=== PATIENT | male | born 1970 | race Caucasian/White ===

== ENCOUNTER 2017-02-25 20:55 | Emergency (ER) | payer MEDICAID, OTHER ==
[~2017-02-25] VITALS: Ht 193 cm; Wt 110.5 kg
[~2017-02-25 20:55] MED LIST: CYCL-36 PO; GLIP5 PO; LISI5 PO; LORTA5 PO; METF-324 PO; TRAD5TAB PO
[2017-02-25 21:06] VITALS: BP 128/87; PULSE 119; RESP 16; TEMP 98.4; O2SAT 95
[2017-02-25] MEDS ORDERED: METF1000 PO ×2 (21:19→22:15)
[2017-02-25] MEDS ORDERED: GLIP10TA6 PO ×2 (21:19→22:15)
[2017-02-25] MEDS ORDERED: SODIUM CHLOR 0.9% 1000 ML INJ 1,000 ML IV ONE ×2 (21:32→22:02)
--- NOTE | 2017-02-25 21:39 | PD ---
HPI Chief Complaint: Abnormal Results Time Seen by Provider: 21:32 Travel History International Travel<30 days: No Contact w/Intl Traveler<30days: No Traveled to known affect area: No History of Present Illness HPI Patient 46-year-old male presents emergency department for a chief complaint medication refill. Patient states that his primary care physician about a year ago when he's been without his medicines for approximately 3-4 months. 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 Patient has no complaints: Denies any chest pain shortness of breath abdominal pain nausea vomiting diarrhea dysuria polyuria palpitations headaches. Patient states that he was formerly on glipizide as well as metformin. PFSH Past Medical History Asthma: No Blood Disorders: No Cancer: No COPD: No Diabetes: Yes Patient Takes Glucophage: Yes (our of for three weeks) Diminished Hearing: No Genitourinary: No Hypertension: Yes Immune Disorder: No Musculoskeletal: No Neurologic: No Psychiatric: No Reproductive: No Respiratory: No Immunizations Current: Yes Sleep Apnea: No Thyroid Disease: No Tetanus Vaccination: < 5 Years Influenza Vaccination: No Past Surgical History Surgical History: No Previous Surgery Social History Alcohol Use: No Tobacco Use: Yes (1 PPD) Substance Use: No Allergies-Medications (Allergen,Severity, Reaction): Coded Allergies: No Known Allergies (Verified , 07/04/14) Reported Meds & Prescriptions Reported Meds & Active Scripts Active Metformin (Metformin HCl) 1,000 Mg Tab 1,000 Mg PO BIDPC With meals Glipizide 10 Mg Tab 10 Mg PO BIDAC Take 30 minutes before a meal Review of Systems Except as stated in HPI: all other systems reviewed are Neg Physical Exam Narrative GENERAL: [Well-developed well-nourished no apparent distress. Smells of cigarette smoke. SKIN: Focused skin assessment warm/dry. HEAD: Atraumatic. Normocephalic. EYES: Pupils equal and round. No scleral icterus. No injection or drainage. ENT: No nasal bleeding or discharge. Mucous membranes pink and moist. NECK: Trachea midline. No JVD. CARDIOVASCULAR: Regular rhythm with mild tachycardia. No murmur appreciated. RESPIRATORY: No accessory muscle use. Clear to auscultation. Breath sounds equal bilaterally. GASTROINTESTINAL: Abdomen soft, non-tender, nondistended. Hepatic and splenic margins not palpable. MUSCULOSKELETAL: No obvious deformities. No clubbing. No cyanosis. No edema. NEUROLOGICAL: Awake and alert. No obvious cranial nerve deficits. Motor grossly within normal limits. Normal speech. PSYCHIATRIC: Appropriate mood and affect; insight and judgment normal. Data Data Last Documented VS Vital Signs Date Time Temp Pulse Resp B/P Pulse Ox O2 Delivery O2 Flow Rate FiO2 02/25/17 22:49 95 18 117/70 98 Room Air 02/25/17 21:06 98.4 Orders Electrocardiogram (02/25/17 21:32) Complete Blood Count With Diff (02/25/17 21:32) Comprehensive Metabolic Panel (02/25/17 21:32) Ecg Monitoring (02/25/17 21:32) Iv Access Insert/Monitor (02/25/17 21:32) Oximetry (02/25/17 21:32) Sodium Chlor 0.9% 1000 Ml Inj (Ns 1000 M (02/25/17 21:32) Sodium Chlor 0.9% 1000 Ml Inj (Ns 1000 M (02/25/17 22:02) Sodium Chloride 0.9% Flush (Ns Flush) (02/25/17 21:45) Labs Laboratory Tests Test 02/25/17 21:38 White Blood Count 10.8 TH/MM3 Red Blood Count 5.24 MIL/MM3 Hemoglobin 16.4 GM/DL Hematocrit 46.5 % Mean Corpuscular Volume 88.7 FL Mean Corpuscular Hemoglobin 31.2 PG Mean Corpuscular Hemoglobin 35.2 % Concent Red Cell Distribution Width 11.3 % Platelet Count 268 TH/MM3 Mean Platelet Volume 8.6 FL Neutrophils (%) (Auto) 67.8 % Lymphocytes (%) (Auto) 24.0 % Monocytes (%) (Auto) 5.9 % Eosinophils (%) (Auto) 0.1 % Basophils (%) (Auto) 2.2 % Neutrophils # (Auto) 7.4 TH/MM3 Lymphocytes # (Auto) 2.6 TH/MM3 Monocytes # (Auto) 0.6 TH/MM3 Eosinophils # (Auto) 0.0 TH/MM3 Basophils # (Auto) 0.2 TH/MM3 CBC Comment DIFF FINAL Differential Comment Sodium Level 135 MEQ/L Potassium Level 3.8 MEQ/L Chloride Level 98 MEQ/L Carbon Dioxide Level 28.4 MEQ/L Anion Gap 9 MEQ/L Blood Urea Nitrogen 12 MG/DL Creatinine 1.00 MG/DL Estimat Glomerular Filtration 80 ML/MIN Rate Random Glucose 279 MG/DL Calcium Level 9.3 MG/DL Total Bilirubin 0.4 MG/DL Aspartate Amino Transf 15 U/L (AST/SGOT) Alanine Aminotransferase 26 U/L (ALT/SGPT) Alkaline Phosphatase 104 U/L Total Protein 7.5 GM/DL Albumin 3.5 GM/DL MDM Medical Decision Making Medical Screen Exam Complete: Yes Emergency Medical Condition: Yes Interpretation(s) EKG shows sinus tachycardia at a rate of 109, normal axis normal R-wave progression. No concerning ST T changes. Intervals other than return to normal limits. This normal EKG except for rate. Differential Diagnosis DKA unlikely, hyperglycemia, acute kidney injury, dehydration. Narrative Course Patient was roomed in emergency department, he was given 2 L of normal saline, his heart rate has normalized. He has no physical complaints or warrants additional workup in the emergency department. His liver enzymes and kidney function are within normal limits. After confirming the doses of the medication refills with him he was prescribed a month of each. He is stable for discharge at this time. Reiterated smoking cessation need for follow-up with a primary care physician and return to ED criteria. He is stable for discharge at this time. Diagnosis Primary Impression: Hyperglycemia due to type 2 diabetes mellitus Qualified Code: E11.65 - Type 2 diabetes mellitus with hyperglycemia, without long-term current use of insulin Additional Impression: Tobacco abuse Patient Instructions: General Instructions Med/Other Pt SpecificInfo: Prescription(s) given Scripts Metformin 1,000 Mg Tab1,000 Mg PO BIDPC #60 TAB Ref 0 With meals Prov:Dominick Ewing MD 02/25/17 Glipizide 10 Mg Tab10 Mg PO BIDAC #60 TAB Ref 0 Take 30 minutes before a meal Prov:Dominick Ewing MD 02/25/17 Disposition: 01 DISCHARGE HOME Condition: Stable Dominick Ewing MD February 25, 2017 21:39
[2017-02-25] MEDS ORDERED: SODIUM CHLORIDE 0.9% FLUSH 10 ML FLUSH IVF PRN (21:45)
[2017-02-25 21:48] VITALS: PULSE 108; O2SAT 95
[2017-02-25 21:49] LABS: AUTOMATED NEUTROPHIL # 7.4 TH/MM3 (1.8-7.7); BASOPHIL # 0.2 TH/MM3 (0-0.2); BASOPHIL % 2.2 % (0.0-2.0); EOSINOPHIL % 0.1 % (0.0-4.0); HEMATOCRIT 46.5 % (39.0-51.0); HEMO FLAGS DIFF FINAL; LYMPHOCYTE # 2.6 TH/MM3 (1.0-4.8); MEAN CELL VOLUME 88.7 FL (80.0-100.0); MEAN CORPUSCULAR HEMOGLOBIN 31.2 PG (27.0-34.0); MEAN CORPUSCULAR HGB CONC 35.2 % (32.0-36.0); MONO % 5.9 % (0.0-8.0); NEUT % 67.8 % (16.0-70.0); PLATELET COUNT 268 TH/MM3 (150-450); RED BLOOD COUNT 5.24 MIL/MM3 (4.50-5.90); RED CELL DISTRIBUTION WIDTH 11.3 % (11.6-17.2); WHITE BLOOD COUNT 10.8 TH/MM3 (4.0-11.0)
[2017-02-25 21:59] LABS: CHLORIDE 98 MEQ/L (98-107); POTASSIUM 3.8 MEQ/L (3.5-5.1); SODIUM (NA) 135 MEQ/L (136-145)
[2017-02-25 22:03] LABS: ANION GAP 9 MEQ/L (5-15); BICARBONATE 28.4 MEQ/L (21.0-32.0); BLOOD UREA NITROGEN 12 MG/DL (7-18)
[2017-02-25 22:06] LABS: ALT (GPT) 26 U/L (12-78); AST (GOT) 15 U/L (15-37); GLOMERULAR FILTRATION RATE 80 ML/MIN (>89)
[2017-02-25 22:08] LABS: TOTAL BILIRUBIN ADULT 0.4 MG/DL (0.2-1.0)
[2017-02-25 22:09] LABS: ALKALINE PHOSPHATASE 104 U/L (45-117)
[2017-02-25 22:21] VITALS: PULSE 94; O2SAT 95
[2017-02-25 22:49] VITALS: BP 117/70; PULSE 95; RESP 18; O2SAT 98
--- NOTE | 2017-02-26 15:44 | EKG ---
Date Performed: 02/25/2017 Time Performed: 21:36:40 PTAGE: 46 years EKG: Sinus tachycardia Normal ECG except for rate PREVIOUS TRACING : 04/09/2013 15.01 Compared to prior tracing no significant change DOCTOR: Eulogio Holland Interpretating Date/Time 02/26/2017 15:42:21
== END 2017-02-25 23:32 | disposition home or self-care (01) ==
LOC: PHED 20:55
DX: E11.65 Type 2 diabetes mellitus with hyperglycemia (principal); R00.0 Tachycardia, unspecified; I10 Essential (primary) hypertension; Z72.0 Tobacco use; Z76.0 Encounter for issue of repeat prescription
CPT/HCPCS: 80053; 85025; 93005; 96365; 96366; 99282; J7030

== ENCOUNTER 2017-07-13 13:16 | Inpatient (IN) | payer SELFPAY ==
[~2017-07-13] VITALS: Ht 193 cm; Wt 100.3 kg
[~2017-07-13 13:16] MED LIST changes: -CYCL-36 PO; +GLIP10TA6 PO; -GLIP5 PO; -LISI5 PO; -LORTA5 PO; -METF-324 PO; +METF1000 PO; -TRAD5TAB PO
[2017-07-13 13:20] VITALS: BP 123/56; PULSE 120; RESP 16; TEMP 98; O2SAT 98
[2017-07-13] MEDS ORDERED: SODIUM CHLOR 0.9% 1000 ML INJ 1,000 ML IV SCH (14:01)
[2017-07-13 14:05] VITALS: O2SAT 97
[2017-07-13] MEDS ORDERED: METF500T PO (14:05)
[2017-07-13] MEDS ORDERED: SODIUM CHLOR 0.9% 1000 ML INJ 1,000 ML IV ONE (14:15)
[2017-07-13] MEDS ORDERED: SODIUM CHLORIDE 0.9% FLUSH 5 ML FLUSH IV FLUSH PRN (14:15)
--- NOTE | 2017-07-13 14:23 | PD ---
HPI Chief Complaint: General Weakness Time Seen by Provider: 13:54 Travel History International Travel<30 days: No Contact w/Intl Traveler<30days: No Traveled to known affect area: No History of Present Illness HPI 47 yo M c/o generalized fatigue for several days. He normally takes glipizide and metformin however has not taken any for three weeks. + Vomiting x 3 over last 24 hours. No fever. Normal urination. Pt reports 30 pound weight loss over last three weeks. Location generalized. Severity moderate. PFSH Past Medical History Asthma: No Blood Disorders: No Cancer: No COPD: No Diabetes: Yes (Type 2 ) Patient Takes Glucophage: No Diminished Hearing: No Genitourinary: No Hypertension: Yes Immune Disorder: No Musculoskeletal: No Neurologic: No Psychiatric: No Reproductive: No Respiratory: No Immunizations Current: Yes Schizophrenia: Yes Sleep Apnea: No Thyroid Disease: No ?: Not Past Surgical History Oral Surgery: Yes Social History Alcohol Use: No Tobacco Use: Yes (1 PPD) Substance Use: No Allergies-Medications (Allergen,Severity, Reaction): Coded Allergies: No Known Allergies (Verified , 07/13/17) Reported Meds & Prescriptions Reported Meds & Active Scripts Active Glipizide 10 Mg Tab 10 Mg PO BIDAC Take 30 minutes before a meal Reported Metformin (Metformin HCl) 500 Mg Tab 500 Mg PO BIDPC With meals Review of Systems Except as stated in HPI: all other systems reviewed are Neg Physical Exam Narrative GENERAL: 47 yo M, WNWD, NAD SKIN: Warm and dry. HEAD: Atraumatic. Normocephalic. EYES: Pupils equal and round. No scleral icterus. No injection or drainage. ENT: No nasal bleeding or discharge. Mucous membranes pink and moist. NECK: Trachea midline. No JVD. CARDIOVASCULAR: Regular rhythm. Tachycardia. RESPIRATORY: No accessory muscle use. Clear to auscultation. Breath sounds equal bilaterally. GASTROINTESTINAL: Abdomen soft, non-tender, nondistended. Hepatic and splenic margins not palpable. MUSCULOSKELETAL: Extremities without clubbing, cyanosis, or edema. No obvious deformities. NEUROLOGICAL: Awake and alert. No obvious cranial nerve deficits. Motor grossly within normal limits. Five out of 5 muscle strength in the arms and legs. Normal speech. PSYCHIATRIC: Appropriate mood and affect; insight and judgment normal. Data Data Last Documented VS Vital Signs Date Time Temp Pulse Resp B/P (MAP) Pulse Ox O2 Delivery O2 Flow Rate FiO2 07/13/17 15:05 102 14 111/59 (76) 99 Room Air 07/13/17 13:20 98.0 VS reviewed Orders Orders Basic Metabolic Panel (Bmp) (07/13/17 14:01) Complete Blood Count With Diff (07/13/17 14:01) Iv Access Insert/Monitor (07/13/17 14:01) Oximetry (07/13/17 14:01) Sodium Chloride 0.9% Flush (Ns Flush) (07/13/17 14:15) Sodium Chlor 0.9% 1000 Ml Inj (Ns 1000 M (07/13/17 14:01) Sodium Chlor 0.9% 1000 Ml Inj (Ns 1000 M (07/13/17 14:15) Urinalysis - C+S If Indicated (07/13/17 14:08) Blood Glucose (07/13/17 14:08) Blood Glucose (07/13/17 15:08) Blood Glucose (07/13/17 14:08) Beta Hydroxybutyrate (Acetone) (07/13/17 14:01) Urine Culture (07/13/17 14:18) Ceftriaxone Inj (Rocephin Inj) (07/13/17 15:00) Admit Order (Ed Use Only) (07/13/17 15:05) Labs Laboratory Tests Test 07/13/17 14:02 07/13/17 14:18 White Blood Count 29.3 TH/MM3 Red Blood Count 3.92 MIL/MM3 Hemoglobin 11.3 GM/DL Hematocrit 33.2 % Mean Corpuscular Volume 84.8 FL Mean Corpuscular Hemoglobin 28.9 PG Mean Corpuscular Hemoglobin Concent 34.1 % Red Cell Distribution Width 14.3 % Platelet Count 471 TH/MM3 Mean Platelet Volume 7.7 FL Neutrophils (%) (Auto) 91.7 % Lymphocytes (%) (Auto) 5.2 % Monocytes (%) (Auto) 2.8 % Eosinophils (%) (Auto) 0.1 % Basophils (%) (Auto) 0.2 % Neutrophils # (Auto) 26.9 TH/MM3 Lymphocytes # (Auto) 1.5 TH/MM3 Monocytes # (Auto) 0.8 TH/MM3 Eosinophils # (Auto) 0.0 TH/MM3 Basophils # (Auto) 0.1 TH/MM3 CBC Comment AUTO DIFF Differential Comment AUTO DIFF CONFIRMED Toxic Granulation 1+ Platelet Estimate HIGH Platelet Morphology Comment NORMAL Blood Urea Nitrogen 16 MG/DL Creatinine 1.50 MG/DL Random Glucose 245 MG/DL Calcium Level 8.9 MG/DL Sodium Level 133 MEQ/L Potassium Level 3.7 MEQ/L Chloride Level 103 MEQ/L Carbon Dioxide Level 18.6 MEQ/L Anion Gap 11 MEQ/L Estimat Glomerular Filtration Rate 50 ML/MIN B-Hydroxybutyrate 1.05 MMOL/L Urine Collection Type VOIDED Urine Color STRAW Urine Turbidity CLOUDY Urine pH 6.0 Urine Specific [place] 1.012 Urine Protein 30 mg/dL Urine Glucose (UA) NEG mg/dL Urine Ketones 15 mg/dL Urine Occult Blood LARGE Urine Nitrite NEG Urine Bilirubin NEG Urine Leukocyte Esterase LARGE Urine WBC INNUM /hpf Urine WBC Clumps FEW Urine Squamous Epithelial Cells 0-3 /hpf Urine Bacteria MANY /hpf Microscopic Urinalysis Comment CULTURE INDICATED MDM Medical Decision Making Medical Screen Exam Complete: Yes Emergency Medical Condition: Yes Medical Record Reviewed: Yes Differential Diagnosis DKA, hyperglycemia, sepsis, UTI, renal failure, electrolyte imbalance Narrative Course CBC & BMP Diagram 07/13/17 14:02 Calcium Level 8.9 Neutrophils 92% UA: UTI present Beta hydroxybutyrate 1.05 2L NS, 1g Rocephin Admission for sepsis 2/2 UTI with hyperglycemia Sepsis lactic acid protocol ordered; blood cultures ordered d/w Dr Read Diagnosis Primary Impression: Sepsis secondary to UTI Additional Impression: Hyperglycemia Admitting Information Admitting Physician Requests: Admit Salvador Nogueira MD Jul 13, 2017 14:22
[2017-07-13 14:29] LABS: AUTOMATED NEUTROPHIL # 26.9 TH/MM3 (1.8-7.7); BASOPHIL # 0.1 TH/MM3 (0-0.2); BASOPHIL % 0.2 % (0.0-2.0); EOSINOPHIL % 0.1 % (0.0-4.0); HEMATOCRIT 33.2 % (39.0-51.0); LYMPH % 5.2 % (9.0-44.0); LYMPHOCYTE # 1.5 TH/MM3 (1.0-4.8); MEAN CELL VOLUME 84.8 FL (80.0-100.0); MEAN CORPUSCULAR HEMOGLOBIN 28.9 PG (27.0-34.0); MEAN CORPUSCULAR HGB CONC 34.1 % (32.0-36.0); MONO % 2.8 % (0.0-8.0); NEUT % 91.7 % (16.0-70.0); PLATELET COUNT 471 TH/MM3 (150-450); RED BLOOD COUNT 3.92 MIL/MM3 (4.50-5.90); RED CELL DISTRIBUTION WIDTH 14.3 % (11.6-17.2); WHITE BLOOD COUNT 29.3 TH/MM3 (4.0-11.0)
[2017-07-13 14:31] LABS: HEMO FLAGS AUTO DIFF
[2017-07-13 14:35] LABS: BLOOD, URINE LARGE (NEG); GLUCOSE,URINE NEG (NEG); KETONE, URINE 15 mg/dL (NEG); NITRITE,URINE NEG (NEG)
[2017-07-13 14:44] LABS: POTASSIUM 3.7 MEQ/L (3.5-5.1)
[2017-07-13 14:47] LABS: BICARBONATE 18.6 MEQ/L (21.0-32.0)
[2017-07-13 14:49] LABS: METHOD OF COLLECTION VOIDED; URINE COLOR STRAW (YELLW/STRAW)
[2017-07-13 14:50] LABS: BACTERIA, URINE MANY /hpf; COMMENT (UR) CULTURE INDICATED; CULTURE IF INDICATED CULTURE INDICATED; SQUAMOUS EPITHELIAL CELL URINE 0-3 /hpf (0-5); WBC, URINE INNUM /hpf (0-5)
[2017-07-13 14:51] LABS: BETA-HYDROXYBUTYRATE 1.05 MMOL/L (0.00-0.39)
[2017-07-13] MEDS ORDERED: cefTRIAXone INJ 1,000 MG in SODIUM CHLORIDE 0.9% INJ 100 ML IV ONE (15:00)
[2017-07-13 15:02] LABS: TOXIC GRANULATION 1+ (NORMAL)
[2017-07-13 15:03] LABS: PLATELET ESTIMATE SMEAR HIGH (NORMAL); PLATELET MORPHOLOGY NORMAL (NORMAL); SCAN/DIFF AUTO DIFF CONFIRMED
[2017-07-13 15:05] VITALS: BP 111/59; PULSE 102; RESP 14; O2SAT 99
[2017-07-13 15:40] VITALS: BP 128/76; PULSE 94; RESP 16; O2SAT 98
[2017-07-13] MEDS ORDERED: GLUCAGON 1 MG/ML VIAL OTHER PRN (16:30)
[2017-07-13] MEDS ORDERED: DEXTROSE 50% IN WATER 50 ML VIAL(D50) IV PUSH PRN (16:30)
[2017-07-13] MEDS ORDERED: SODIUM CHLORIDE 0.9% FLUSH 10 ML FLUSH IV FLUSH PRN (16:30)
[2017-07-13] MEDS: INSULIN ASPART SUPPLEMENTAL SCALE SQ SCH ×2 (17:00→20:32)
--- NOTE | 2017-07-13 17:47 | HHI.HP ---
HPI Service [facility] Primary Care Physician No Primary Care Physician Admission Diagnosis Sepsis 2/2 UTI; Hypergclyemia Diagnoses: Chief Complaint: Shortness of breath and fatigue Travel History International Travel<30 Days: No Contact w/Intl Traveler <30 Da: No Traveled to Known Affected Are: No Sepsis Criteria SIRS Criteria (2 or more): Heart rate over 90, WBC > 75777, < 4000 or > 10% bands Severe Sepsis (+one): Organ Dysfunction Criteria Outcome: Meets severe sepsis criteria History of Present Illness Patient is a 47-year-old gentleman with a known history of type 2 diabetes on oral medicines alone. 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 He has been drinking lots of water and has polydipsia and polyphagia. On the last 24 hours has noted increased nausea and vomiting without fever. Patient says his chest is congested has a cough. He thinks he lost quite a bit of weight over the last 3 weeks. He notes no specific pain complaint but is generally weak. Patient has been admitted through the emergency room with some tachycardia, leukocytosis and mild to moderate dysuria. Over 3 weeks ago he was treated for urinary tract infection but was unable to complete the therapy because his medications have been thrown out. Review of Systems Constitutional: DENIES: Diaphoretic episodes, Fatigue, Fever, Weight gain, Weight loss, Chills, Dizziness, Change in appetite, Night Sweats Endocrine: DENIES: Heat/cold intolerance Eyes: DENIES: Blurred vision, Eye pain Ears, nose, mouth, throat: DENIES: Tinnitus, Hearing loss, Vertigo, Nasal discharge, Oral lesions, Throat pain, Hoarseness, Ear Pain, Running Nose, Epistaxis, Sinus Pain, Toothache, Odynophagia Respiratory: COMPLAINS OF: Cough, DENIES: Apneas, Snoring, Wheezing, Hemoptysis , Sputum production, Shortness of breath Cardiovascular: DENIES: Chest pain, Palpitations, Syncope, Dyspnea on Exertion , PND, Lower Extremity Edema, Orthopnea, Claudication Gastrointestinal: DENIES: Abdominal pain, Black stools, Bloody stools, Constipation, Diarrhea, Nausea, Vomiting, Difficulty Swallowing, Anorexia Genitourinary: COMPLAINS OF: Urinary frequency, Urgency, Hematuria, DENIES: Sexual dysfunction, Urinary incontinence, Dysuria, Nocturia, Penile Discharge, Testicular Pain, Testicular Swelling Musculoskeletal: DENIES: Joint pain, Muscle aches, Stiffness, Joint Swelling, Back pain, Neck pain Hematologic/lymphatic: DENIES: Bruising, Lymphadenopathy Immunologic/allergic: DENIES: Eczema, Urticaria Neurologic: DENIES: Abnormal gait, Headache, Localized weakness, Paresthesias, Seizures, Speech Problems, Tremor, Poor Balance Except as stated in HPI: all other systems reviewed are Neg Past Family Social History Past Medical History Diabetes Past Surgical History Orthopedic Reported Medications Ran out of all his medications, reviewed in the EMR Allergies: Coded Allergies: No Known Allergies (Verified , 07/13/17) Active Ordered Medications reviewed in the EMR Family History strong family history of type I and type 2 diabetes as well as hypertension coronary disease Social History Smokes a pack per day 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 Cool and dry. HEAD: Atraumatic. Normocephalic. No temporal or scalp tenderness. EYES: Pupils equal round and reactive. Extraocular motions intact. No scleral icterus. No injection or drainage. ENT: Nose without bleeding, purulent drainage or septal hematoma. Throat without erythema, tonsillar hypertrophy or exudate. Uvula midline. Airway patent. NECK: Trachea midline. No JVD or lymphadenopathy. Supple, nontender, no meningeal signs. CARDIOVASCULAR: Sinus tachycardia without murmurs, gallops, or rubs. RESPIRATORY: Clear to auscultation. Breath sounds equal bilaterally. No wheezes , rales, or rhonchi. GASTROINTESTINAL: Abdomen soft, non-tender, nondistended. No hepato-splenomegaly , or palpable masses. No guarding. MUSCULOSKELETAL: Extremities without clubbing, cyanosis, or edema. No joint tenderness, effusion, or edema noted. No calf tenderness. Negative Homans sign bilaterally. NEUROLOGICAL: Awake and alert. Cranial nerves II through XII intact. Motor and sensory grossly within normal limits. Five out of 5 muscle strength in all muscle groups. Normal speech. Laboratory Laboratory Tests Test 07/13/17 14:02 07/13/17 14:18 White Blood Count 29.3 Red Blood Count 3.92 Hemoglobin 11.3 Hematocrit 33.2 Mean Corpuscular Volume 84.8 Mean Corpuscular Hemoglobin 28.9 Mean Corpuscular Hemoglobin Concent 34.1 Red Cell Distribution Width 14.3 Platelet Count 471 Mean Platelet Volume 7.7 Neutrophils (%) (Auto) 91.7 Lymphocytes (%) (Auto) 5.2 Monocytes (%) (Auto) 2.8 Eosinophils (%) (Auto) 0.1 Basophils (%) (Auto) 0.2 Neutrophils # (Auto) 26.9 Lymphocytes # (Auto) 1.5 Monocytes # (Auto) 0.8 Eosinophils # (Auto) 0.0 Basophils # (Auto) 0.1 CBC Comment AUTO DIFF Differential Comment AUTO DIFF CONFIRMED Toxic Granulation 1+ Platelet Estimate HIGH Platelet Morphology Comment NORMAL Blood Urea Nitrogen 16 Creatinine 1.50 Random Glucose 245 Calcium Level 8.9 Sodium Level 133 Potassium Level 3.7 Chloride Level 103 Carbon Dioxide Level 18.6 Anion Gap 11 Estimat Glomerular Filtration Rate 50 B-Hydroxybutyrate 1.05 Urine Collection Type VOIDED Urine Color STRAW Urine Turbidity CLOUDY Urine pH 6.0 Urine Specific [place] 1.012 Urine Protein 30 Urine Glucose (UA) NEG Urine Ketones 15 Urine Occult Blood LARGE Urine Nitrite NEG Urine Bilirubin NEG Urine Leukocyte Esterase LARGE Urine WBC INNUM Urine WBC Clumps FEW Urine Squamous Epithelial Cells 0-3 Urine Bacteria MANY Microscopic Urinalysis Comment CULTURE INDICATED Date/Time Source Procedure Growth Status 07/13/17 14:18 Urine Random Urine Urine Culture Pending Received Result Diagram: 07/13/17 1402 07/13/17 1402 Septic Shock Reassessment Heart: Other (sinus tachycardia) Lungs: Clear Skin: Warm Peripheral Pulses: Bounding Right Radial Bounding Left Radial Bounding Right Popliteal Bounding Left Popliteal Bounding Right Dorsalis Pedis Bounding Left Dorsalis Pedis Bounding Right Posterior Tibial Bounding Left Posterior Tibial Caprini VTE Risk Assessment Caprini VTE Risk Assessment: Mod/High Risk (score >= 2) Caprini Risk Assessment Model Point Value = 1 Point Value = 2 Point Value = 3 Point Value = 5 Age 41-60 Minor surgery BMI > 25 kg/m2 Swollen legs Varicose veins or History of unexplained or recurrent spontaneous Oral contraceptives or hormone replacement Sepsis (< 1 month) Serious lung disease, including pneumonia (< 1 month) Abnormal pulmonary function Acute myocardial infarction Congestive heart failure (< 1 month) History of inflammatory bowel disease Medical patient at bed rest Age 61-74 Arthroscopic surgery Major open surgery (> 45 min) Laparoscopic surgery (> 45 min) Malignancy Confined to bed (> 72 hours) Immobilizing plaster cast Central venous access Age >= 75 History of VTE Family history of VTE Factor V Leiden Prothrombin [id number] Lupus anticoagulant Anticardiolipin antibodies Elevated serum homocysteine Heparin-induced thrombocytopenia Other congenital or acquired thrombophilia Stroke (< 1 month) Elective arthroplasty Hip, pelvis, or leg fracture Acute spinal cord injury (< 1 month) Prophylaxis Regimen Total Risk Factor Score Risk Level Prophylaxis Regimen 0-1 Low Early ambulation 2 Moderate Order ONE of the following: *Sequential Compression Device (SCD) *Heparin 5000 units SQ BID 3-4 Higher Order ONE of the following medications: *Heparin 5000 units SQ TID *Enoxaparin/Lovenox 40 mg SQ daily (WT < 150 kg, CrCl > 30 mL/min) *Enoxaparin/Lovenox 30 mg SQ daily (WT < 150 kg, CrCl > 10-29 mL/min) *Enoxaparin/Lovenox 30 mg SQ BID (WT < 150 kg, CrCl > 30 mL/min) AND/OR *Sequential Compression Device (SCD) 5 or more Highest Order ONE of the following medications: *Heparin 5000 units SQ TID (Preferred with Epidurals) *Enoxaparin/Lovenox 40 mg SQ daily (WT < 150 kg, CrCl > 30 mL/min) *Enoxaparin/Lovenox 30 mg SQ daily (WT < 150 kg, CrCl > 10-29 mL/min) *Enoxaparin/Lovenox 30 mg SQ BID (WT < 150 kg, CrCl > 30 mL/min) AND *Sequential Compression Device (SCD) Assessment and Plan Problem List: (1) Hyperglycemia ICD Code: R73.9 - Hyperglycemia, unspecified; N39.0 - Urinary tract infection, site not specified Status: Acute Plan: Patient with known diabetes and off his medications. Continue with sliding scale insulin and with hemoglobin C follow-up. We'll correct his electrolytes And follow his acidosis (ketotic) (2) ANDREW (acute kidney injury) ICD Code: N17.9 - Acute kidney failure, unspecified Plan: Likely due to dehydration, continue with IV fluids and follow blood sugar (3) Sepsis secondary to UTI ICD Code: A41.9 - Sepsis, unspecified organism; N39.0 - Urinary tract infection , site not specified Status: Acute Plan: Severe sepsis present on admission with sinus tachycardia, leukocytosis and evidence of acute organ injury (renal failure) Continue Rocephin for presumed UTI, follow up cultures cxray and BC pending Labs may represent volume contraction, will follow with IV hydration Code Status Full code Discussed Condition With Patient, MICHAEL Jolly Physician Certification 2 Midnight Certification Type: Admission for Inpatient Services (2) Order for Inpatient Services The services are ordered in accordance with Medicare regulations or non- Medicare payer requirements, as applicable. In the case of services not specified as inpatient-only, they are appropriately provided as inpatient services in accordance with the 2-midnight benchmark. Estimated LOS (days): 2 2 days is the estimated time the patient will need to remain in the hospital, assuming treatment plan goals are met and no additional complications. Post-Hospital Plan: Geovanna Patel MD Jul 13, 2017 17:47
[2017-07-13 18:00] VITALS: BP 126/77; PULSE 96; RESP 18; TEMP 98.2; O2SAT 97
[2017-07-13] MEDS: INSULIN DETEMIR 100 UNITS/ML VIAL SQ SCH (18:15)
--- NOTE | 2017-07-13 18:35 | RADRPT ---
EXAM DATE/TIME: 07/13/2017 18:05 [facility] COMPARISON: No previous studies available for comparison. INDICATIONS : Cough, congestion. MEDICAL HISTORY : Diabetes mellitus type II. SURGICAL HISTORY : None. ENCOUNTER: Initial ACUITY: 2 days PAIN SCORE: 0/10 LOCATION: Bilateral chest FINDINGS: PA and lateral views of the chest demonstrate the lungs to be symmetrically aerated without evidence of mass, infiltrate or effusion. The cardiomediastinal contours are unremarkable. Osseous structure s are intact. CONCLUSION: No acute disease. Mickey Dan MD FACR on July 13, 2017 at 18:33 Board Certified Radiologist. This report was verified electronically.
[2017-07-13 20:00] VITALS: BP 138/84; PULSE 96; RESP 20; TEMP 98.6; O2SAT 97
[2017-07-13 20:19] LABS: POTASSIUM 3.8 MEQ/L (3.5-5.1)
[2017-07-13] MEDS: ACETAMINOPHEN 325 MG TAB PO PRN (20:26)
[2017-07-13] MEDS: HEPARIN SODIUM - SQ 10,000 UNITS/ML VIAL SQ SCH (20:32)
[2017-07-13] MEDS: SODIUM CHLORIDE 0.9% FLUSH 10 ML FLUSH IV FLUSH SCH (20:32)
[2017-07-13] MEDS: SODIUM CHLOR 0.9% 1000 ML INJ 1,000 ML IV SCH (20:33)
[2017-07-13] MEDS ORDERED: INSULIN DETEMIR 100 UNITS/ML VIAL SQ SCH (21:00)
[2017-07-14] VITALS: BP 131/73; PULSE 99; RESP 20; TEMP 97.9; O2SAT 97
[2017-07-14 01:14] LABS: HDL CHOLESTEROL 8.8 MG/DL (40.0-60.0); LDL CHOLESTEROL 29 MG/DL (0-99)
[2017-07-14] MEDS: ACETAMINOPHEN 325 MG TAB PO PRN ×4 (02:54→19:45)
[2017-07-14] MEDS: SODIUM CHLOR 0.9% 1000 ML INJ 1,000 ML IV SCH ×2 (03:13→03:52)
[2017-07-14 04:00] VITALS: BP 121/79; PULSE 109; RESP 18; TEMP 97.7; O2SAT 97
[2017-07-14] MEDS: HEPARIN SODIUM - SQ 10,000 UNITS/ML VIAL SQ SCH ×3 (05:11→20:56)
[2017-07-14] MEDS ORDERED: MORPHINE SULFATE 4 MG/ML INJ IV PUSH ONE (06:30)
[2017-07-14 06:44] LABS: AUTOMATED NEUTROPHIL # 18.6 TH/MM3 (1.8-7.7); BASOPHIL % 0.1 % (0.0-2.0); EOSINOPHIL % 0.1 % (0.0-4.0); HEMATOCRIT 29.5 % (39.0-51.0); LYMPH % 6.1 % (9.0-44.0); LYMPHOCYTE # 1.3 TH/MM3 (1.0-4.8); MEAN CELL VOLUME 85.4 FL (80.0-100.0); MEAN CORPUSCULAR HEMOGLOBIN 28.4 PG (27.0-34.0); MEAN CORPUSCULAR HGB CONC 33.2 % (32.0-36.0); MONO % 4.1 % (0.0-8.0); NEUT % 89.6 % (16.0-70.0); PLATELET COUNT 447 TH/MM3 (150-450); RED BLOOD COUNT 3.45 MIL/MM3 (4.50-5.90); RED CELL DISTRIBUTION WIDTH 14.4 % (11.6-17.2); WHITE BLOOD COUNT 20.7 TH/MM3 (4.0-11.0)
[2017-07-14 06:52] LABS: POTASSIUM 3.7 MEQ/L (3.5-5.1)
[2017-07-14 06:58] LABS: BICARBONATE 18.5 MEQ/L (21.0-32.0)
[2017-07-14 07:01] LABS: HEMO FLAGS DIFF FINAL
[2017-07-14 07:12] LABS: BETA-HYDROXYBUTYRATE 1.69 MMOL/L (0.00-0.39)
[2017-07-14 08:00] VITALS: BP 154/84; PULSE 110; RESP 18; TEMP 97.9; O2SAT 98
[2017-07-14] MEDS: INSULIN ASPART SUPPLEMENTAL SCALE SQ SCH ×4 (08:07→20:57)
[2017-07-14] MEDS: SODIUM CHLORIDE 0.9% FLUSH 10 ML FLUSH IV FLUSH SCH ×2 (08:10→20:21)
[2017-07-14] MEDS: INSULIN DETEMIR 100 UNITS/ML VIAL SQ SCH ×2 (09:46→20:57)
[2017-07-14 10:51] LABS: HEMOGLOBIN A1a 1.1 %; HEMOGLOBIN A1b 1.1 %; HEMOGLOBIN Ao 73.2 %; HEMOGLOBIN F 2.5 %; HEMOGLOBIN P3 5.3 %
[2017-07-14] MEDS: ONDANSETRON HCL 4 MG/2 ML VIAL IVP PRN ×2 (12:55→19:39)
[2017-07-14 14:04] LABS: POTASSIUM 3.7 MEQ/L (3.5-5.1)
[2017-07-14 14:07] LABS: BICARBONATE 23.3 MEQ/L (21.0-32.0)
--- NOTE | 2017-07-14 14:15 | HHI.PR ---
Subjective Remarks Doing well today feels less dehydrates acidosis improved patient educated re diabetes complains of flank pain right greater than left Objective Vitals Vital Signs Date Time Temp Pulse Resp B/P (MAP) Pulse Ox O2 Delivery O2 Flow Rate FiO2 07/14/17 09:12 18 07/14/17 08:00 97.9 110 18 154/84 (107) 98 07/14/17 04:00 97.7 109 18 121/79 (93) 97 07/14/17 00:00 97.9 99 20 131/73 (92) 97 07/13/17 20:00 98.6 96 20 138/84 (102) 97 07/13/17 18:00 98.2 96 18 126/77 (93) 97 07/13/17 17:03 07/13/17 15:40 94 16 128/76 (93) 98 07/13/17 15:05 102 14 111/59 (76) 99 Room Air I/O 07/13/17 07/13/17 07/13/17 07/14/17 07/14/17 07/14/17 07:00 15:00 23:00 07:00 15:00 23:00 Intake Total 2820 ml 1524 ml Balance 2820 ml 1524 ml Intake Oral 720 ml 480 ml IV Total 2100 ml 1044 ml # Voids 3 2 # Bowel Movements 0 0 Result Diagram: 07/14/17 0558 07/14/17 0558 Imaging Last Impressions Chest X-Ray 07/13/17 0000 Signed Impressions: Service Date/Time: Thursday, July 13, 2017 18:05 - CONCLUSION: No acute disease. Mickey Dan MD FACR Objective Remarks GENERAL: This is a well-nourished, well-developed patient, in no apparent distress. CARDIOVASCULAR: Regular rate and rhythm without murmurs, gallops, or rubs. RESPIRATORY: Clear to auscultation. Breath sounds equal bilaterally. No wheezes , rales, or rhonchi. GASTROINTESTINAL: right greater than left flank pain; Abdomen soft, non-tender, nondistended. Normal active bowel sounds MUSCULOSKELETAL: Extremities without clubbing, cyanosis, or edema. NEURO: Alert & Oriented x4 to person, place, time, situation. Moves all ext x4 A/P Problem List: (1) Hyperglycemia ICD Code: R73.9 - Hyperglycemia, unspecified; N39.0 - Urinary tract infection, site not specified Status: Acute Plan: Possible diabetic ketoacidosis in type 2 nonadherent male with DM2 Patient with known diabetes and off his medications. HG A1c 13 Continue with Levemir sliding scale insulin and with hemoglobin C follow-up. We'll correct his electrolytes And follow his acidosis (ketotic) resume home meds when stable, but likely will also need insulin (2) ANDREW (acute kidney injury) ICD Code: N17.9 - Acute kidney failure, unspecified Plan: improved with ivf (3) Sepsis secondary to UTI ICD Code: A41.9 - Sepsis, unspecified organism; N39.0 - Urinary tract infection , site not specified Status: Acute Plan: Severe sepsis present on admission with sinus tachycardia, leukocytosis and evidence of acute organ injury (renal failure) Continue Rocephin for GNR in UA, follow up cultures cxray negative and BC pending (4) Flank pain ICD Code: R10.9 - Unspecified abdominal pain Plan: r/o stone, us pending Geovanna Read MD Jul 14, 2017 14:15
[2017-07-14] MEDS ORDERED: SODIUM CHLOR 0.9% 1000 ML INJ 1,000 ML IV ONE (14:45)
--- NOTE | 2017-07-14 15:29 | RADRPT ---
EXAM DATE/TIME: 07/14/2017 11:45 [facility] COMPARISON: No previous studies available for comparison. INDICATIONS : Flank Pain. MEDICAL HISTORY : Hypertension. Hematuria. Diabetes. Schizophrenia. Blood transfusion. Acute kidney injury. SURGICAL HISTORY : Oral surgery. Right wrist surgery. ENCOUNTER: Initial ACUITY: 2 months PAIN SCORE: 6/10 LOCATION: Bilateral flank MEASUREMENTS: RIGHT KIDNEY: 14.3 x 5.8 x 6.9 cm LEFT KIDNEY: 13.9 x 6.0 x 7.1 cm FINDINGS: RIGHT KIDNEY: Renal cortex is normal in thickness and echotexture. No hydronephrosis, stone, or mass. LEFT KIDNEY: Small lower pole cyst and stone. No hydronephrosis. BLADDER: Small volume of dependent debris. CONCLUSION: Small nonobstructing left kidney stone. Debris in the urinary bladder Antonio Zheng MD on July 14, 2017 at 15:25 Board Certified Radiologist. This report was verified electronically.
[2017-07-14] MEDS ORDERED: INSULIN DETEMIR 100 UNITS/ML VIAL SQ SCH (17:48)
[2017-07-14] MEDS ORDERED: PROMETHAZINE INJ 25 MG/ML VIAL IM PRN (18:30)
[2017-07-14 19:04] LABS: POTASSIUM 3.7 MEQ/L (3.5-5.1)
[2017-07-14 20:00] VITALS: BP 153/84; PULSE 112; RESP 18; TEMP 100.6; O2SAT 96
[2017-07-15] VITALS: BP 121/73; PULSE 103; RESP 20; TEMP 100; O2SAT 96
[2017-07-15] MEDS: ACETAMINOPHEN 325 MG TAB PO PRN ×3 (00:22→12:06)
[2017-07-15] MEDS: cefTRIAXone INJ 1,000 MG in SODIUM CHLORIDE 0.9% INJ 100 ML IV SCH (00:24)
[2017-07-15] MEDS ORDERED: cefTRIAXone INJ 1,000 MG in SODIUM CHLORIDE 0.9% INJ 100 ML IV SCH (03:00)
[2017-07-15] MEDS: SODIUM CHLOR 0.9% 1000 ML INJ 1,000 ML IV SCH ×3 (03:18→17:45)
[2017-07-15 03:59] VITALS: TEMP 98.5
[2017-07-15] MEDS: HEPARIN SODIUM - SQ 10,000 UNITS/ML VIAL SQ SCH ×3 (05:27→21:19)
[2017-07-15 06:54] LABS: AUTOMATED NEUTROPHIL # 10.7 TH/MM3 (1.8-7.7); BASOPHIL % 0.1 % (0.0-2.0); EOSINOPHIL % 0.2 % (0.0-4.0); HEMATOCRIT 29.3 % (39.0-51.0); LYMPH % 10.5 % (9.0-44.0); LYMPHOCYTE # 1.4 TH/MM3 (1.0-4.8); MEAN CELL VOLUME 85.3 FL (80.0-100.0); MEAN CORPUSCULAR HEMOGLOBIN 27.9 PG (27.0-34.0); MEAN CORPUSCULAR HGB CONC 32.7 % (32.0-36.0); NEUT % 83.2 % (16.0-70.0); PLATELET COUNT 449 TH/MM3 (150-450); RED BLOOD COUNT 3.43 MIL/MM3 (4.50-5.90); RED CELL DISTRIBUTION WIDTH 14.5 % (11.6-17.2); WHITE BLOOD COUNT 12.9 TH/MM3 (4.0-11.0)
[2017-07-15 06:57] LABS: POTASSIUM 3.7 MEQ/L (3.5-5.1)
[2017-07-15 07:01] LABS: HEMO FLAGS AUTO DIFF
[2017-07-15 07:03] LABS: BICARBONATE 22.1 MEQ/L (21.0-32.0)
[2017-07-15 07:47] LABS: SCAN/DIFF AUTO DIFF CONFIRMED
[2017-07-15] MEDS: SODIUM CHLORIDE 0.9% FLUSH 10 ML FLUSH IV FLUSH SCH ×2 (07:47→21:00)
[2017-07-15 08:00] VITALS: BP 108/76; PULSE 103; RESP 16; TEMP 99; O2SAT 95
[2017-07-15] MEDS: INSULIN ASPART SUPPLEMENTAL SCALE SQ SCH ×4 (08:51→21:00)
[2017-07-15] MEDS: INSULIN DETEMIR 100 UNITS/ML VIAL SQ SCH ×2 (08:51→21:20)
[2017-07-15 12:00] VITALS: BP 125/82; PULSE 92; RESP 18; TEMP 98.8; O2SAT 96
--- NOTE | 2017-07-15 12:06 | HHI.PR ---
Subjective Remarks In bed, say she feels very tired, says he did vomiting yesterday and feels nauseated. Able to eat some food today but not much. Fevers and chills yesterday. Right sided flank pain intermittent, not controlled by tylenol Objective Vitals Vital Signs Date Time Temp Pulse Resp B/P (MAP) Pulse Ox O2 Delivery O2 Flow Rate FiO2 07/15/17 08:54 16 07/15/17 08:00 99.0 103 16 108/76 (87) 95 07/15/17 03:59 98.5 07/15/17 00:00 100.0 103 20 121/73 (89) 96 07/14/17 20:59 18 07/14/17 20:00 100.6 112 18 153/84 (107) 96 I/O 07/14/17 07/14/17 07/14/17 07/15/17 07/15/17 07/15/17 07:00 15:00 23:00 07:00 15:00 23:00 Intake Total 1524 ml 1000 ml 1350 ml Balance 1524 ml 1000 ml 1350 ml Intake Oral 480 ml IV Total 1044 ml 1000 ml 1350 ml # Voids 2 # Bowel Movements 0 Result Diagram: 07/15/17 0627 07/15/17 0627 Other Results Microbiology Date/Time Source Procedure Growth Status 07/13/17 14:18 Urine Random Urine Urine Culture - Final Raoultella Ornithinolytica Escherichia Coli Complete Imaging Last Impressions Renal Ultrasound 07/14/17 0000 Signed Impressions: Service Date/Time: Friday, July 14, 2017 11:45 - CONCLUSION: Small nonobstructing left kidney stone. Debris in the urinary bladder Antonio Zheng MD Chest X-Ray 07/13/17 0000 Signed Impressions: Service Date/Time: Thursday, July 13, 2017 18:05 - CONCLUSION: No acute disease. Mickey Dan MD FACR Objective Remarks GENERAL: This is a well-nourished, well-developed patient, in no apparent distress. CARDIOVASCULAR: Regular rate and rhythm without murmurs, gallops, or rubs. RESPIRATORY: Clear to auscultation. Breath sounds equal bilaterally. No wheezes , rales, or rhonchi. GASTROINTESTINAL: right greater than left flank pain; Abdomen soft, non-tender, nondistended. Normal active bowel sounds MUSCULOSKELETAL: Extremities without clubbing, cyanosis, or edema. NEURO: Alert & Oriented x4 to person, place, time, situation. Moves all ext x4 A/P Problem List: (1) Hyperglycemia ICD Code: R73.9 - Hyperglycemia, unspecified; N39.0 - Urinary tract infection, site not specified Status: Acute (2) ANDREW (acute kidney injury) ICD Code: N17.9 - Acute kidney failure, unspecified (3) Sepsis secondary to UTI ICD Code: A41.9 - Sepsis, unspecified organism; N39.0 - Urinary tract infection , site not specified Status: Acute (4) Flank pain ICD Code: R10.9 - Unspecified abdominal pain Assessment and Plan (1) Uncontrolled DM with A1c of 13 ICD Code: R73.9 - Hyperglycemia, unspecified; N39.0 - Urinary tract infection, site not specified Status: Acute Plan: Possible diabetic ketoacidosis in type 2 nonadherent male with DM2 Patient with known diabetes and off his medications. HG A1c 13 Continue with Levemir sliding scale insulin and with hemoglobin C follow-up. We'll correct his electrolytes And follow his acidosis (ketotic) resume home meds when stable, but likely will also need insulin Consult television equipment operator (2) ANDREW (acute kidney injury) ICD Code: N17.9 - Acute kidney failure, unspecified Plan: improved with ivf (3) Sepsis secondary to UTI E coli and Rauleltella species ICD Code: A41.9 - Sepsis, unspecified organism; N39.0 - Urinary tract infection , site not specified Status: Acute Plan: Severe sepsis present on admission with sinus tachycardia, leukocytosis and evidence of acute organ injury (renal failure) on admission. Resolving. On Rocephin cxray negative and BC NTD (4) Right Flank pain, small nonobstructive kidney stone ICD Code: R10.9 - Unspecified abdominal pain Plan: US reviewed small nonobstructive kidney stone . Add pain meds per pain scale Discussed with the patient, nurse Susan Blanco MD Jul 15, 2017 12:06
[2017-07-15] MEDS ORDERED: ASPI1TAB93 PO (12:13)
[2017-07-15] MEDS: ONDANSETRON HCL 4 MG/2 ML VIAL IVP PRN (12:46)
[2017-07-15] MEDS: ACETAMINOPHEN/HYDROcodone 325 MG/5 MG TAB PO PRN ×3 (12:49→21:32)
[2017-07-15 16:00] VITALS: BP 111/64; PULSE 86; RESP 18; TEMP 98.9; O2SAT 95
[2017-07-15] MEDS ORDERED: NALOXONE HCL 0.4 MG/ML AMP IV PUSH PRN (17:15)
[2017-07-15] MEDS ORDERED: SENNOSIDES 8.6 MG TAB PO PRN (18:00)
[2017-07-15] MEDS ORDERED: MAGNESIUM HYDROXIDE SUSP 30 ML CUP PO PRN (18:00)
[2017-07-15] MEDS ORDERED: LACTULOSE SYRUP 20 GM/30 ML CUP PO PRN (18:00)
[2017-07-15] MEDS ORDERED: BISACODYL 10 MG SUPP RECTAL PRN (18:00)
[2017-07-15 20:00] VITALS: BP 129/76; PULSE 90; RESP 16; TEMP 98.3; O2SAT 96
[2017-07-15] MEDS: DOCUSATE SODIUM 50 MG/SENNA 8.6 MG TAB PO SCH (21:00)
[2017-07-16] VITALS: BP 137/77; PULSE 95; RESP 16; TEMP 97.9; O2SAT 98
[2017-07-16] MEDS: cefTRIAXone INJ 1,000 MG in SODIUM CHLORIDE 0.9% INJ 100 ML IV SCH (00:19)
[2017-07-16] MEDS: ACETAMINOPHEN/HYDROcodone 325 MG/5 MG TAB PO PRN ×2 (02:22→06:07)
[2017-07-16] MEDS: SODIUM CHLOR 0.9% 1000 ML INJ 1,000 ML IV SCH (04:20)
[2017-07-16] MEDS: HEPARIN SODIUM - SQ 10,000 UNITS/ML VIAL SQ SCH (06:07)
[2017-07-16 06:36] LABS: AUTOMATED NEUTROPHIL # 8.1 TH/MM3 (1.8-7.7); BASOPHIL % 0.1 % (0.0-2.0); HEMATOCRIT 28.3 % (39.0-51.0); LYMPH % 17.2 % (9.0-44.0); LYMPHOCYTE # 1.8 TH/MM3 (1.0-4.8); MEAN CELL VOLUME 84.9 FL (80.0-100.0); MEAN CORPUSCULAR HEMOGLOBIN 27.5 PG (27.0-34.0); MEAN CORPUSCULAR HGB CONC 32.4 % (32.0-36.0); MONO % 7.5 % (0.0-8.0); NEUT % 75.2 % (16.0-70.0); PLATELET COUNT 472 TH/MM3 (150-450); RED BLOOD COUNT 3.34 MIL/MM3 (4.50-5.90); RED CELL DISTRIBUTION WIDTH 14.6 % (11.6-17.2); WHITE BLOOD COUNT 10.7 TH/MM3 (4.0-11.0)
[2017-07-16 06:41] LABS: POTASSIUM 3.5 MEQ/L (3.5-5.1)
[2017-07-16 06:45] LABS: BICARBONATE 23.5 MEQ/L (21.0-32.0)
[2017-07-16 06:59] LABS: HEMO FLAGS AUTO DIFF
[2017-07-16 07:26] LABS: SCAN/DIFF AUTO DIFF CONFIRMED
[2017-07-16 08:00] VITALS: BP 126/76; PULSE 97; RESP 16; TEMP 98.7; O2SAT 95
[2017-07-16] MEDS: INSULIN DETEMIR 100 UNITS/ML VIAL SQ SCH (08:06)
[2017-07-16] MEDS: DOCUSATE SODIUM 50 MG/SENNA 8.6 MG TAB PO SCH (08:07)
[2017-07-16] MEDS: INSULIN ASPART SUPPLEMENTAL SCALE SQ SCH (08:07)
[2017-07-16] MEDS: SODIUM CHLORIDE 0.9% FLUSH 10 ML FLUSH IV FLUSH SCH (08:12)
[2017-07-16] MEDS ORDERED: GLIP10TA6 PO (08:19)
[2017-07-16] MEDS ORDERED: METF500T PO (08:19)
[2017-07-16] MEDS ORDERED: SENN1TAB PO (08:19)
[2017-07-16] MEDS ORDERED: LANCETS1 MI1 (08:22)
[2017-07-16] MEDS ORDERED: GLUCKIT15 (08:22)
[2017-07-16] MEDS ORDERED: NORC5TAB PO (08:22)
[2017-07-16] MEDS ORDERED: BIOM30MI (08:22)
[2017-07-16] MEDS ORDERED: GLUCTES12 (08:22)
[2017-07-16] MEDS ORDERED: INSU1MIS15 (08:22)
[2017-07-16] MEDS ORDERED: LEVEMIR SQ (08:22)
--- NOTE | 2017-07-16 08:22 | HHI.DS ---
Discharge Summary Admission Date Jul 13, 2017 at 15:06 Discharge Date: Jul 16, 2017 Admitting Diagnosis Sepsis 2/2 UTI; Hypergclyemia (1) Hyperglycemia ICD Code: R73.9 - Hyperglycemia, unspecified; N39.0 - Urinary tract infection, site not specified Status: Acute (2) ANDREW (acute kidney injury) ICD Code: N17.9 - Acute kidney failure, unspecified (3) Sepsis secondary to UTI ICD Code: A41.9 - Sepsis, unspecified organism; N39.0 - Urinary tract infection , site not specified Status: Acute (4) Flank pain ICD Code: R10.9 - Unspecified abdominal pain Procedures No procedures Brief History - From Admission Patient is a 47-year-old gentleman with a known history of type 2 diabetes on oral medicines alone. 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 He has been drinking lots of water and has polydipsia and polyphagia. On the last 24 hours has noted increased nausea and vomiting without fever. Patient says his chest is congested has a cough. He thinks he lost quite a bit of weight over the last 3 weeks. He notes no specific pain complaint but is generally weak. Patient has been admitted through the emergency room with some tachycardia, leukocytosis and mild to moderate dysuria. Over 3 weeks ago he was treated for urinary tract infection but was unable to complete the therapy because his medications have been thrown out. CBC/BMP: 07/16/17 0550 07/16/17 0550 Significant Findings Laboratory Tests Test 07/13/17 14:02 07/13/17 14:18 07/13/17 20:00 07/14/17 05:58 White Blood Count 29.3 TH/MM3 (4.0-11.0) 20.7 TH/MM3 (4.0-11.0) Red Blood Count 3.92 MIL/MM3 (4.50-5.90) 3.45 MIL/MM3 (4.50-5.90) Hemoglobin 11.3 GM/DL (13.0-17.0) 9.8 GM/DL (13.0-17.0) Hematocrit 33.2 % (39.0-51.0) 29.5 % (39.0-51.0) Platelet Count 471 TH/MM3 (150-450) Neutrophils (%) (Auto) 91.7 % (16.0-70.0) 89.6 % (16.0-70.0) Lymphocytes (%) (Auto) 5.2 % (9.0-44.0) 6.1 % (9.0-44.0) Neutrophils # (Auto) 26.9 TH/MM3 (1.8-7.7) 18.6 TH/MM3 (1.8-7.7) Toxic Granulation 1+ (NORMAL) Platelet Estimate HIGH (NORMAL) Creatinine 1.50 MG/DL (0.60-1.30) 1.40 MG/DL (0.60-1.30) Random Glucose 245 MG/DL (74-106) 277 MG/DL (74-106) 200 MG/DL (74-106) Sodium Level 133 MEQ/L (136-145) 135 MEQ/L (136-145) Carbon Dioxide Level 18.6 MEQ/L (21.0-32.0) 18.5 MEQ/L (21.0-32.0) Estimat Glomerular Filtration Rate 50 ML/MIN (>89) 54 ML/MIN (>89) 65 ML/MIN (>89) B-Hydroxybutyrate 1.05 MMOL/L (0.00-0.39) 1.69 MMOL/L (0.00-0.39) Urine Turbidity CLOUDY (CLEAR) Urine Protein 30 mg/dL (NEG-TRACE) Urine Ketones 15 mg/dL (NEG) Urine Occult Blood LARGE (NEG) Urine Leukocyte Esterase LARGE (NEG) Urine WBC INNUM /hpf (0-5) Urine WBC Clumps FEW (NONE) Urine Bacteria MANY /hpf (NONE) Calcium Level 7.9 MG/DL (8.5-10.1) Hemoglobin A1c 13.0 % (4.3-6.0) Triglycerides Level 173 MG/DL (42-150) Cholesterol Level 72 MG/DL (120-200) HDL Cholesterol 8.8 MG/DL (40.0-60.0) Chloride Level 108 MEQ/L (98-107) Test 07/14/17 14:00 07/14/17 18:30 07/15/17 06:27 07/16/17 05:50 Random Glucose 261 MG/DL (74-106) 195 MG/DL (74-106) 182 MG/DL (74-106) 176 MG/DL (74-106) Sodium Level 135 MEQ/L (136-145) Estimat Glomerular Filtration Rate 59 ML/MIN (>89) 59 ML/MIN (>89) 65 ML/MIN (>89) 72 ML/MIN (>89) White Blood Count 12.9 TH/MM3 (4.0-11.0) Red Blood Count 3.43 MIL/MM3 (4.50-5.90) 3.34 MIL/MM3 (4.50-5.90) Hemoglobin 9.6 GM/DL (13.0-17.0) 9.2 GM/DL (13.0-17.0) Hematocrit 29.3 % (39.0-51.0) 28.3 % (39.0-51.0) Neutrophils (%) (Auto) 83.2 % (16.0-70.0) 75.2 % (16.0-70.0) Neutrophils # (Auto) 10.7 TH/MM3 (1.8-7.7) 8.1 TH/MM3 (1.8-7.7) Calcium Level 8.4 MG/DL (8.5-10.1) 8.0 MG/DL (8.5-10.1) Platelet Count 472 TH/MM3 (150-450) Imaging Last Impressions Renal Ultrasound 07/14/17 0000 Signed Impressions: Service Date/Time: Friday, July 14, 2017 11:45 - CONCLUSION: Small nonobstructing left kidney stone. Debris in the urinary bladder Antonio Zheng MD Chest X-Ray 07/13/17 0000 Signed Impressions: Service Date/Time: Thursday, July 13, 2017 18:05 - CONCLUSION: No acute disease. Mickey Dan MD FACR PE at Discharge GENERAL: This is a well-nourished, well-developed patient, in no apparent distress. CARDIOVASCULAR: Regular rate and rhythm without murmurs, gallops, or rubs. RESPIRATORY: Clear to auscultation. Breath sounds equal bilaterally. No wheezes , rales, or rhonchi. GASTROINTESTINAL: right greater than left flank pain; Abdomen soft, non-tender, nondistended. Normal active bowel sounds MUSCULOSKELETAL: Extremities without clubbing, cyanosis, or edema. NEURO: Alert & Oriented x4 to person, place, time, situation. Moves all ext x4 Pt update on day of discharge Constipation resolved , he had 2 bowel movements yesterday. No nausea, no vomiting or diarrhea. No fever or chills. Still feels weak however able to ambulate. Eating better. No dizziness. No chest pain or shortness of breath. Hospital Course Patient is a 47-year-old gentleman with a known history of type 2 diabetes on oral medicines alone. 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 He has been drinking lots of water and has polydipsia and polyphagia. patient with uncontrolled diabetes a1c of 13. patient says she run out of medications for ~ 2 months and needs prescriptions. Also was found with sepsis/ UTI, treated with antibiotic, switched to PO antibiotic at discharge. Patient improved, was discharged homne in stable condition to follow up as OP with PCP. (1) Uncontrolled DM with A1c of 13 ICD Code: R73.9 - Hyperglycemia, unspecified; N39.0 - Urinary tract infection, site not specified Status: Acute Plan: Possible diabetic ketoacidosis in type 2 nonadherent male with DM2 Patient with known diabetes and off his medications. HG A1c 13 Continue with Levemir sliding scale insulin and with hemoglobin C follow-up. We'll correct his electrolytes And follow his acidosis (ketotic) resume home meds when stable, but likely will also need insulin Consult director of reservations (2) ANDREW (acute kidney injury) ICD Code: N17.9 - Acute kidney failure, unspecified Plan: improved with ivf (3) Sepsis secondary to UTI E coli and Rauleltella species ICD Code: A41.9 - Sepsis, unspecified organism; N39.0 - Urinary tract infection , site not specified Status: Acute Plan: Severe sepsis present on admission with sinus tachycardia, leukocytosis and evidence of acute organ injury (renal failure) on admission. Resolving. On Rocephin cxray negative and BC NTD (4) Right Flank pain, small nonobstructive kidney stone ICD Code: R10.9 - Unspecified abdominal pain Plan: US reviewed small nonobstructive kidney stone . Add pain meds per pain scale Discussed with the patient, nurse Pt Condition on Discharge: Stable Discharge Disposition: Discharge Home Discharge Time: > 30 minutes Discharge Instructions DIET: Follow Instructions for: Diabetic Diet Activities you can perform: Regular-No Restrictions Follow up Referrals: PCP Follow-up - 2-3 Days New Medications: Blood Glucose Monitoring W/Device (Glucocom Blood Glucose Mo W/Device) 1 Kit Kit KIT .ROUTE DIRECTED for Blood Sugar Management, #1 Ciprofloxacin (Ciprofloxacin) 250 Mg Tab 250 MG PO BID for Infection, #20 TAB 0 Refills Glucocom Test Strips (Glucocom Test Strips) 1 Delaney Delaney EA .ROUTE DIRECTED for Blood Sugar Management, #1 Hydrocodone-Acetaminophen ([place]) 5-325 mg Tab 1 TAB PO Q6H PRN for PAIN, #14 TAB 0 Refills Insulin Syringe/U-100/31G X 5/16" 1 ml (Insulin Syringe/U-100/31G X 5/16" 1 ml) 31 Gauge X 5/16" Mis EA .ROUTE DIRECTED for Blood Sugar Management, #1 0 Refills Lactobacillus Acidophilus (Lactinex) 1 Chew 1 TAB CHEW DAILY for Nutritional Supplement, #30 TAB 0 Refills Lancets (Lancets) 1 Mis Mis EA .ROUTE DIRECTED for Blood Sugar Management, #1 0 Refills Parenteral Therapy Supplies (Sharpsafety Sharps Contai) 1 Mis Mis EA .ROUTE DIRECTED, #1 0 Refills Insulin Detemir Inj (Levemir Inj) 1,000 unit/ 10 ML Vial 5 UNITS SQ BID for uncontrolled diabetes , #60 INJECTION Do not mix with any other Insulin. Sennosides-Docusate Sodium (Senna Plus 8.6-50 mg) 8.6 Mg-50 Mg Tab 1 TAB PO BID for Constipation, #30 TAB Continued Medications: Xvcggxw-Atagmradyeucs-Qwbpgvdr (Excedrin Extra Strength) 250 Mg-250 Mg-65 Mg Tab 4 TAB PO Q4HR PRN for PAIN SCALE 1 TO 10 Glipizide (Glipizide) 10 Mg Tab 10 MG PO BIDAC for Blood Sugar Management, #60 TAB 0 Refills (This prescription has been renewed) Take 30 minutes before a meal Metformin (Metformin) 500 Mg Tab 500 MG PO BIDPC for Blood Sugar Management, #60 TAB 0 Refills (This prescription has been renewed) With meals Cosma,Susan MD Jul 16, 2017 08:22
[2017-07-16] MEDS ORDERED: CIPR250T2 PO (08:25)
[2017-07-16] MEDS ORDERED: LACTCHW3 CHEW (08:25)
== END 2017-07-16 11:39 | disposition home or self-care (01) | DRG 872 ==
LOC: PHED 13:16 → PHEDA 15:06 → PH3B 17:13
PROVIDERS: ADMIT Hospitalist; ATTEND Hospitalist
DX: A41.9 Sepsis, unspecified organism (principal); N17.9 Acute kidney failure, unspecified; N39.0 Urinary tract infection, site not specified; R65.20 Severe sepsis without septic shock; E11.65 Type 2 diabetes mellitus with hyperglycemia; Z79.84 Long term (current) use of oral hypoglycemic drugs; Z83.3 Family history of diabetes mellitus; Z91.14 Patient's other noncompliance with medication regimen; E86.0 Dehydration; N20.0 Calculus of kidney; K59.00 Constipation, unspecified; F17.210 Nicotine dependence, cigarettes, uncomplicated
CPT/HCPCS: 71020; 76775; 80048; 80061; 81001; 82010; 82948; 83036; 85025; 87077; 87086; 87186; 96361; 96374; J0696; J1644; J1815; J2270; J2405; J2550; J7030